=== PATIENT | male | born 1980 | race Caucasian/White ===

== ENCOUNTER 2017-05-27 08:23 | Day surgery (SDC) | payer OTHER ==
[~2017-05-27 08:23] MED LIST: CEFAZOLIN 2 GM/50 ML (PMX) 50 ML IVPB; SOD CHLORIDE 0.9% 1,000 ML IV
[2017-05-27] MEDS ORDERED: BUPIVACAINE 0.25% (MPF) 30 ML INJ (10:20)
[2017-05-27] MEDS ORDERED: PROPOFOL 20 ML (10:28)
[2017-05-27] MEDS ORDERED: FENTAnyl 50 MCG/ML VIAL (10:28)
[2017-05-27] MEDS ORDERED: MIDAZOLAM 1 MG/ML 2 ML INJ (10:28)
[2017-05-27] MEDS ORDERED: SUCCINYLCHOLINE CHLORIDE 100 MG/5 ML SYG IV (10:28)
[2017-05-27] MEDS ORDERED: LIDOCAINE 2% (SDV) 5 ML INJ (10:28)
[2017-05-27] MEDS ORDERED: ROCURONIUM 50 MG INJ (10:28)
[2017-05-27] MEDS ORDERED: PROCHLORPERAZINE 10 MG INJ IV (10:30)
[2017-05-27] MEDS ORDERED: OXYCODONE/ACETAMINOPHEN (5/325) TAB PO ×2 (10:30)
[2017-05-27] MEDS ORDERED: HYDROmorphONE (0.2 MG/ML) 10ML SYG IV ×3 (10:30)
[2017-05-27] MEDS ORDERED: DIPHENHYDRAMINE 50 MG INJ IV (10:30)
[2017-05-27] MEDS ORDERED: FENTAnyl 50 MCG/ML VIAL IV ×2 (10:30)
[2017-05-27] MEDS ORDERED: DEXAMETHASONE 4 MG/ML 1 ML INJ (10:39)
[2017-05-27] MEDS ORDERED: CEFAZOLIN 1 GM INJ (10:39)
[2017-05-27] MEDS ORDERED: ONDANSETRON 4 MG INJ (10:39)
[2017-05-27] MEDS: BUPIVACAINE 0.25% (MPF) 30 ML INJ INJ (11:02)
[2017-05-27] MEDS ORDERED: SUGAMMADEX SODIUM 200 MG/2 ML VIAL IV ×2 (11:02→11:03)
[2017-05-27] MEDS ORDERED: KETOROLAC 30 MG INJ (11:06)
[2017-05-27] MEDS ORDERED: HYDROCODONE/APAP (5/325) TAB PO (11:30)
[2017-05-27] MEDS: MEPERIDINE 25 MG INJ IV (11:37)
[2017-05-27] MEDS: ONDANSETRON 4 MG INJ IV (11:37)
[2017-05-27] MEDS: FENTAnyl 50 MCG/ML VIAL IV (11:52)
== END 2017-05-27 12:49 | disposition home or self-care (01) ==
LOC: SDS 08:23
DX: K43.6 Other and unspecified ventral hernia with obstruction, without gangrene (principal); E66.9 Obesity, unspecified; Z68.32 Body mass index [BMI] 32.0-32.9, adult
CPT/HCPCS: 49653